=== PATIENT | female | born 2000 | race Caucasian/White ===

== ENCOUNTER 2018-06-29 15:49 | Emergency (ER) | payer BC, MEDICAID ==
--- NOTE | 2018-06-29 16:34 | ERPHSYRPT ---
- History of Present Illness Time Seen by Provider: 06/29/18 16:27 Source: patient, family Exam Limitations: no limitations Patient Subjective Stated Complaint: Pt states "This happened once before and I took a benadryl and it went down but then it happened again today but it is worse." Triage Nursing Assessment: PT alert and oriented X 3, skin pwd. PT ambulates with an upright steady gait. Pt left eye is swollen. Pt in no apparent respiratory distress. Physician History: The patient is a 17-year-old female with her mother complaining of a sudden onset of swelling and itching of her left upper and lower eyelid that began while at [employer] this afternoon. Over the period of about one to one and half hours the swelling increased significantly. The eye itself is not red nor does she have blurry vision. The same thing happened 2 days ago on Saturday but to a lesser extent area on Saturday she took Benadryl and the swelling quickly resolved. She does not recall changing any [id number] treatments such as makeup nor does she recall any changes in her diet. She denies any shortness of breath or swelling in her throat. Her past medical history is unremarkable. Timing/Duration: today, hour(s) (3), sudden Quality: itchy Severity: moderate Location: face (left upper and lower eye lids) Possible Causes: no cause identified Associated Symptoms: edema (left eye lids.), No difficulty breathing, No flushing, No hives, No rash Allergies/Adverse Reactions: No Known Drug Allergies Allergy (Unverified 06/29/18 15:59) Hx Tetanus, Diphtheria Vaccination/Date Given: Yes Hx Influenza Vaccination/Date Given: No Hx Pneumococcal Vaccination/Date Given: No Immunizations Up to Date: Yes - Review of Systems Constitutional: No Fever, No Chills Eyes: No Symptoms Ears, Nose, & Throat: No Symptoms Respiratory: No Cough, No Dyspnea Cardiac: No Chest Pain, No Edema, No Syncope Abdominal/Gastrointestinal: No Abdominal Pain, No Nausea, No Vomiting, No Diarrhea Genitourinary Symptoms: No Dysuria Musculoskeletal: No Symptoms Skin: Pruritis, Other (swelling) Neurological: No Dizziness, No Focal Weakness, No Sensory Changes Psychological: No Symptoms Endocrine: No Symptoms Hematologic/Lymphatic: No Symptoms Immunological/Allergic: No Symptoms All Other Systems: Reviewed and Negative - Past Medical History Pertinent Past Medical History: No - Past Surgical History Past Surgical History: No - Social History Smoking Status: Never smoker Exposure to second hand smoke: No Drug Use: none Patient Lives Alone: No - Female History Hx Last Menstrual Period: 06/29/2018 Hx Now: No - Nursing Vital Signs Nursing Vital Signs: Initial Vital Signs Temperature 97.8 F 06/29/18 15:53 Pulse Rate 94 H 06/29/18 15:53 Respiratory Rate 16 06/29/18 15:53 Blood Pressure 137/84 06/29/18 15:53 O2 Sat by Pulse Oximetry 98 06/29/18 15:53 Pain Scale Pain Intensity 0 - Physical Exam General Appearance: no apparent distress, alert Eye Exam: PERRL/EOMI, other (Examination of the left eye: Both the upper and lower eyelid of the left eye are edematous with slight erythema upon eversion. The conjunctiva is not edematous nor is it erythematous. The pupils are equal round and reactive to light and accommodation. No foreign body is identified. There is no matting or discharge.) Ears, Nose, Throat Exam: normal ENT inspection, pharynx normal, moist mucous membranes Neck Exam: normal inspection, non-tender, supple, full range of motion Respiratory Exam: normal breath sounds, lungs clear, No respiratory distress Cardiovascular Exam: regular rate/rhythm, normal heart sounds Gastrointestinal/Abdomen Exam: soft, mass, No tenderness Pelvic Exam: not done Rectal Exam: not done Back Exam: normal inspection, normal range of motion, No CVA tenderness, No vertebral tenderness Extremity Exam: normal inspection, normal range of motion Neurologic Exam: alert, oriented x 3, cooperative, normal mood/affect, sensation nml, No motor deficits Skin Exam: normal color, warm, dry SpO2 Interpretation: normal SpO2: 99 Oxygen Delivery: Room Air Ordered Tests: Active Orders 24 hr Category Date Time Status IV Insertion STAT Care 06/29/18 16:38 Active CBC W DIFF Stat Lab 06/29/18 17:00 Completed CMP Stat Lab 06/29/18 17:00 Completed ESR [Erythrocyte Sedimentation Rate] Stat Lab 06/29/18 17:00 Completed Medication Summary Discontinued Medications Generic Name Dose Route Start Last Admin Trade Name Freq PRN Reason Stop Dose Admin Diphenhydramine HCl 50 mg 06/29/18 16:38 06/29/18 16:54 Benadryl 50 Mg/Ml IV 06/29/18 16:39 50 mg STAT ONE Administration Diphenhydramine HCl Confirm 06/29/18 16:50 Benadryl 50 Mg/Ml Administered 06/29/18 16:51 Dose 50 mg .ROUTE .STK-MED ONE Famotidine 20 mg 06/29/18 16:38 06/29/18 16:54 Pepcid 20 Mg Vial IV 06/29/18 16:39 20 mg STAT ONE Administration Famotidine Confirm 06/29/18 16:50 Pepcid 20 Mg Vial Administered 06/29/18 16:51 Dose 20 mg IV .STK-MED ONE Loratadine 10 mg 06/29/18 16:38 06/29/18 16:55 Claritin 10 Mg PO 06/29/18 16:39 10 mg STAT ONE Administration Loratadine Confirm 06/29/18 16:50 Claritin 10 Mg Administered 06/29/18 16:51 Dose 10 mg .ROUTE .STK-MED ONE Methylprednisolone Sodium Succinate 125 mg 06/29/18 16:38 06/29/18 16:54 Solu-Medrol 125 Mg IV 06/29/18 16:39 125 mg STAT ONE Administration Methylprednisolone Sodium Succinate Confirm 06/29/18 16:50 Solu-Medrol 125 Mg Administered 06/29/18 16:51 Dose 125 mg .ROUTE .STK-MED ONE Lab/Rad Data: Laboratory Result Diagrams 06/29/18 17:00 06/29/18 17:00 Laboratory Results 06/29/18 06/29/18 06/29/18 Range/Units 17:00 17:00 17:00 WBC 5.2 (4.0-10.5) K/mm3 RBC 3.85 L (4.1-5.4) M/mm3 Hgb 10.2 L (12.0-16.0) gm/dl Hct 32.3 L (35-47) % MCV 83.9 (78-100) fl MCH 26.4 (26-32) pg MCHC 31.6 L (32-36) g/dl RDW 13.0 (11.5-14.0) % Plt Count 238 (150-450) K/mm3 MPV 12.7 H (6-9.5) fl Gran % 68.4 H (36.0-66.0) % Eos # (Auto) 0.09 (0-0.5) Absolute Lymphs (auto) 1.14 (1.0-4.6) Absolute Monos (auto) 0.39 (0.0-1.3) Lymphocytes % 22.1 L (24.0-44.0) % Monocytes % 7.6 (0.0-12.0) % Eosinophils % 1.7 (0.00-5.0) % Basophils % 0.2 (0.0-0.4) % Absolute Granulocytes 3.52 (1.4-6.9) Basophils # 0.01 (0-0.4) ESR 9 (0-20) mm/hr Sodium 142 (137-145) mmol/L Potassium 3.9 (3.5-5.1) mmol/L Chloride 108 H (98-107) mmol/L Carbon Dioxide 26 (22-30) mmol/L Anion Gap 12.3 (5-15) MEQ/L BUN 11 (7-17) mg/dL Creatinine 0.69 (0.52-1.04) mg/dL Estimated GFR > 60.0 ML/MIN Glucose 90 (74-106) mg/dL Calcium 9.4 (8.4-10.2) mg/dL Total Bilirubin 0.20 (0.2-1.3) mg/dL AST 20 (14-36) U/L ALT 17 (0-35) U/L Alkaline Phosphatase 54 (38-126) U/L Serum Total Protein 7.2 (6.3-8.2) g/dL Albumin 4.6 (3.5-5.0) g/dL - Progress Progress: improved Progress Note: 06/29/18 18:14 after meds, swelling is decreasing. Counseled pt/family regarding: lab results, diagnosis - Departure Time of Disposition: 18:15 Departure Disposition: Home Clinical Impression: Angioedema Condition: Stable Critical Care Time: No Referrals: SEAN MELCHOR [Primary Care Provider] - Additional Instructions: You have an allergic reaction of angioedema. You were given Pepcid 20 mg, Benadryl 50 mg, and Solu-Medrol 125 mg by IV in the ER. You were also given loratadine 10 mg orally. The the allergen causing the angioedema is unknown at this time. Take prednisone 60 mg daily for 5 days. If the condition returns, these do not hesitate to return to the ER or follow-up with your primary medical doctor. You may also take Benadryl 25-50 mg every 2-4 hours as needed. Prescriptions: Prednisone 20 mg [Deltasone 20 mg] 3 tab PO DAILY #15 tablet
[2018-06-29] MEDS ORDERED: CLARITIN 10 MG ONE (16:50)
[2018-06-29] MEDS ORDERED: BENADRYL 50 MG/ML ONE (16:50)
[2018-06-29] MEDS ORDERED: Pepcid 20 MG VIAL IV ONE (16:50)
[2018-06-29] MEDS ORDERED: solu-MEDROL 125 MG ONE (16:50)
[2018-06-29] MEDS: BENADRYL 50 MG/ML IV ONE (16:54)
[2018-06-29] MEDS: solu-MEDROL 125 MG IV ONE (16:54)
[2018-06-29] MEDS: Pepcid 20 MG VIAL IV ONE (16:54)
[2018-06-29] MEDS: CLARITIN 10 MG PO ONE (16:55)
[2018-06-29 17:24] LABS: ALBUMIN 4.6 g/dL (3.5-5.0); ALKALINE PHOSPHATASE 54 U/L (38-126); ANION GAP 12.3 MEQ/L (5-15); BLOOD UREA NITROGEN 11 mg/dL (7-17); CHLORIDE 108 mmol/L (98-107); Calcium 9.4 mg/dL (8.4-10.2); Carbon Dioxide 26 mmol/L (22-30); Creatinine 1 0.69 mg/dL (0.52-1.04); Glucose 90 mg/dL (74-106); Potassium 3.9 mmol/L (3.5-5.1); SGOT/AST 20 U/L (14-36); SGPT/ALT 17 U/L (0-35); SODIUM 142 mmol/L (137-145); Total Protein 7.2 g/dL (6.3-8.2)
[2018-06-29 17:30] LABS: BASOPHIL % 0.2 % (0.0-0.4); Basophil (Absolute #) 0.01 (0-0.4); Eosinophil % 1.7 % (0.00-5.0); Eosinophil (Absolute #) 0.09 (0-0.5); Granulocyte Absolute (ANC) 3.52 (1.4-6.9); Granulocytes % 68.4 % (36.0-66.0); Hematocrit 32.3 % (35-47); Hemoglobin 10.2 gm/dl (12.0-16.0); Lymphocyte (Absolute #) 1.14 (1.0-4.6); Lymphocytes % 22.1 % (24.0-44.0); Mean Cell Volume 83.9 fl (78-100); Mean Corpuscular Hgb Concent. 31.6 g/dl (32-36); Mean Platelet Volume 12.7 fl (6-9.5); Monocyte (Absolute #) 0.39 (0.0-1.3); Monocytes % 7.6 % (0.0-12.0); Platelet Count 238 K/mm3 (150-450); Red Blood Count 3.85 M/mm3 (4.1-5.4); White Blood Count 5.2 K/mm3 (4.0-10.5)
[2018-06-29 17:34] LABS: Mean Corpuscular Hemoglobin 26.4 pg (26-32)
[2018-06-29 18:20] VITALS: BP 118/63; PULSE 70; O2SAT 98
== END 2018-06-29 18:30 | disposition home or self-care (01) ==
LOC: ED 15:49
DX: T78.3XXA Angioneurotic edema, initial encounter (principal)
CPT/HCPCS: 36000; 36415; 80053; 85025; 85652; 96374; 96375; 99284; J1200; J2930; A9270-GY

== ENCOUNTER 2018-09-11 14:17 | Emergency (ER) | payer BC ==
[2018-09-11 14:43] VITALS: BP 115/78; PULSE 88; O2SAT 99
[2018-09-11 15:00] LABS: BASOPHIL % 0.3 % (0.0-0.4); Basophil (Absolute #) 0.02 (0-0.4); Eosinophil % 0.6 % (0.00-5.0); Eosinophil (Absolute #) 0.04 (0-0.5); Granulocyte Absolute (ANC) 4.64 (1.4-6.9); Granulocytes % 73.3 % (36.0-66.0); Hematocrit 38.7 % (35-47); Hemoglobin 12.4 gm/dl (12.0-16.0); Lymphocyte (Absolute #) 1.24 (1.0-4.6); Lymphocytes % 19.6 % (24.0-44.0); Mean Cell Volume 86.6 fl (78-100); Mean Corpuscular Hemoglobin 27.7 pg (26-32); Mean Platelet Volume 11.8 fl (6-9.5); Monocyte (Absolute #) 0.39 (0.0-1.3); Monocytes % 6.2 % (0.0-12.0); Platelet Count 256 K/mm3 (150-450); Red Blood Count 4.47 M/mm3 (4.1-5.4); Red Cell Distribution Width 17.2 % (11.5-14.0); White Blood Count 6.3 K/mm3 (4.0-10.5)
[2018-09-11 15:10] LABS: ANION GAP 13.5 MEQ/L (5-15); BLOOD UREA NITROGEN 10 mg/dL (7-17); CHLORIDE 101 mmol/L (98-107); Calcium 9.6 mg/dL (8.4-10.2); Carbon Dioxide 28 mmol/L (22-30); Creatinine 1 0.86 mg/dL (0.52-1.04); Glucose 110 mg/dL (74-106); Potassium 4.3 mmol/L (3.5-5.1); SODIUM 138 mmol/L (137-145)
[2018-09-11 15:42] LABS: Appearance CLEAR (CLEAR); Bilirubin NEGATIVE (NEGATIVE); Blood NEGATIVE Ery/ul (0-5); Glucose NEGATIVE (NEGATIVE); Ketones NEGATIVE (NEGATIVE); Leukocyte Esterase NEGATIVE (NEGATIVE); Nitrite NEGATIVE (NEGATIVE); Protein,Urine Dip NEGATIVE (Negative); Specific Gravity 1.001 (1.005-1.025); Urobilinogen NEGATIVE mg/dL (0-1)
[2018-09-11 15:44] LABS: Bacteria NONE SEEN /HPF (NEGATIVE)
[2018-09-11] MEDS ORDERED: BENADRYL 25 MG CAPSULE PO ONE (15:59)
--- NOTE | 2018-09-11 16:08 | ERPHSYRPT ---
- History of Present Illness Source: patient Exam Limitations: no limitations Patient Subjective Stated Complaint: was driving down the road approx one hour ago and suddenly started having sharp chest pains, numbness in face and hands and pressure in right eye. pulled car over into the gas station and drank some orange juice. recently dx with anemia and started on iron pills. is now just having short little twinges in chest and minimal numbness to cheeks. Triage Nursing Assessment: ambulated to room per self. skin w/d, color normal, resp easy. juarez. a/o times three. Physician History: Pt is a 18 y/o with no medical history that was driving today in her car, and felt numbness in her face, pressure behind one eye, chest discomfort, and palpitations. Pt stopped near a store, got a bottle of juice, and drank it. She felt better after some time past by. Pt came to the ER, with most symptoms resolved, but she still has face numbness, and her L eye has some swelling. Pt denies N/V/D or abdominal pain. No SOB or cough. No F/C/S. Timing/Duration: today Severity: moderate Character of Deficits: altered sensation, Left Facial, vision problems Deficits: no difficulties Baseline/Normal Cognition: alert oriented x 3 Current Cognition: alert oriented x 3 Associated Symptoms: paresthesia, vision changes, chest pain Allergies/Adverse Reactions: sulfamethoxazole [From Bactrim] Allergy (Verified 09/11/18 14:43) trimethoprim [From Bactrim] Allergy (Verified 09/11/18 14:43) Home Medications: Ferrous Sulfate 325 mg PO DAILY 09/11/18 [History] Fexofenadine HCl [Brenda] 30 mg PO DAILY 09/11/18 [History] Norgestimate-Ethinyl Estradiol [Tri-Sprintec] 1 ea PO DAILY 09/11/18 [History] Hx Tetanus, Diphtheria Vaccination/Date Given: Yes Hx Influenza Vaccination/Date Given: Yes Hx Pneumococcal Vaccination/Date Given: No Immunizations Up to Date: No - Review of Systems Constitutional: No Fever, No Chills Eyes: Vision Changes, Other (around the L eye sweling) Ears, Nose, & Throat: No Symptoms Respiratory: Dyspnea, No Cough Cardiac: Chest Pain, No Edema, No Syncope Abdominal/Gastrointestinal: No Abdominal Pain, No Nausea, No Vomiting, No Diarrhea Genitourinary Symptoms: No Dysuria Neurological: Dizziness, Parasthesia, Sensory Changes Psychological: No Symptoms - Past Medical History Pertinent Past Medical History: Yes Other Medical History: anemia - Past Surgical History Past Surgical History: No - Social History Smoking Status: Never smoker Exposure to second hand smoke: No Drug Use: none Patient Lives Alone: No - Female History Hx Now: No - Nursing Vital Signs Nursing Vital Signs: Initial Vital Signs Temperature 98 F 09/11/18 14:28 Pulse Rate 88 09/11/18 14:28 Respiratory Rate 16 09/11/18 14:28 Blood Pressure 115/78 09/11/18 14:28 O2 Sat by Pulse Oximetry 99 09/11/18 14:28 Pain Scale Pain Intensity 1 - Amparo Coma Scale Best Eye Response ([place]): (4) open spontaneously Best Verbal Response (Amparo): (5) oriented Best Motor Response ([place]paro): (6) obeys commands [place] Total: 15 - Physical Exam General Appearance: no apparent distress, alert Eye Exam: left eye: vision changes (tearing, swelling below the eye) Ears, Nose, Throat Exam: normal ENT inspection, moist mucous membranes Respiratory: normal breath sounds, lungs clear, airway intact, No respiratory distress Cardiovascular: regular rate/rhythm, No edema Gastrointestinal: soft, No tenderness, No distention Back Exam: normal inspection Extremity Exam: normal inspection, No pedal edema Mental Status: 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, 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 Exam: normal speech, tongue midline Motor/Sensory: no motor deficit SpO2: 99 - Course Nursing assessment & vital signs reviewed: Yes Ordered Tests: Active Orders 24 hr Category Date Time Status Clean Catch Urine Specimen STAT Care 09/11/18 15:34 Active BMP Stat Lab 09/11/18 14:55 Completed CBC W DIFF Stat Lab 09/11/18 14:55 Completed UA W/RFX UR CULTURE Stat Lab 09/11/18 15:35 Completed Medication Summary Discontinued Medications Generic Name Dose Route Start Last Admin Trade Name Freq PRN Reason Stop Dose Admin Diphenhydramine HCl 50 mg 09/11/18 15:59 Benadryl 25 Mg Capsule PO 09/11/18 16:00 STAT ONE Lab/Rad Data: Laboratory Result Diagrams 09/11/18 14:55 09/11/18 14:55 Laboratory Results 09/11/18 09/11/18 09/11/18 Range/Units 15:35 14:55 14:55 WBC 6.3 (4.0-10.5) K/mm3 RBC 4.47 (4.1-5.4) M/mm3 Hgb 12.4 (12.0-16.0) gm/dl Hct 38.7 (35-47) % MCV 86.6 (78-100) fl MCH 27.7 (26-32) pg MCHC 32.0 (32-36) g/dl RDW 17.2 H (11.5-14.0) % Plt Count 256 (150-450) K/mm3 MPV 11.8 H (6-9.5) fl Gran % 73.3 H (36.0-66.0) % Eos # (Auto) 0.04 (0-0.5) Absolute Lymphs (auto) 1.24 (1.0-4.6) Absolute Monos (auto) 0.39 (0.0-1.3) Lymphocytes % 19.6 L (24.0-44.0) % Monocytes % 6.2 (0.0-12.0) % Eosinophils % 0.6 (0.00-5.0) % Basophils % 0.3 (0.0-0.4) % Absolute Granulocytes 4.64 (1.4-6.9) Basophils # 0.02 (0-0.4) Sodium 138 (137-145) mmol/L Potassium 4.3 (3.5-5.1) mmol/L Chloride 101 (98-107) mmol/L Carbon Dioxide 28 (22-30) mmol/L Anion Gap 13.5 (5-15) MEQ/L BUN 10 (7-17) mg/dL Creatinine 0.86 (0.52-1.04) mg/dL Estimated GFR > 60.0 ML/MIN Glucose 110 H (74-106) mg/dL Calcium 9.6 (8.4-10.2) mg/dL Urine Color COLORLESS (YELLOW) Urine Appearance CLEAR (CLEAR) Urine pH 7.0 (5-6) Ur Specific [place] 1.001 (1.005-1.025) Urine Protein NEGATIVE (Negative) Urine Ketones NEGATIVE (NEGATIVE) Urine Blood NEGATIVE (0-5) Umesh/ul Urine Nitrite NEGATIVE (NEGATIVE) Urine Bilirubin NEGATIVE (NEGATIVE) Urine Urobilinogen NEGATIVE (0-1) mg/dL Ur Leukocyte Esterase NEGATIVE (NEGATIVE) Urine WBC (Auto) NONE (0-5) /HPF Urine RBC (Auto) NONE (0-2) /HPF U Epithel Cells (Auto) NONE (FEW) /HPF Urine Bacteria (Auto) NONE SEEN (NEGATIVE) /HPF Urine Culture Reflexed NO (NO) Urine Glucose NEGATIVE (NEGATIVE) mg/dL - Progress Progress: improved Progress Note: 09/11/18 16:10 Pt's labs were checked. There is no anemia, hypoglycemia or any other abnormality. Pt had some undereye swelling and Benadryl 50mg PO was given. Pt was diagnosed with complex migraines with aura. Pt was advised to f/u with Neurology. If anytime this repeats itself, to call 911, as I am not sure if pt was hypoglycemic, but at this point her BG is normal, post a bottle of orange juice. Pt should f/u with her PCP. Will see patient in: office Counseled pt/family regarding: need for follow-up - Departure Time of Disposition: 16:12 Departure Disposition: Home Clinical Impression: Migraine aura without headache Condition: Stable Critical Care Time: No Referrals: MASSIEL DOSS MD [Primary Care Provider] - Additional Instructions: F/U with PCP and neurology. Call 911, if those episodes will repeat themselves.
[2018-09-11] MEDS ORDERED: BENADRYL 25 MG CAPSULE ONE (16:35)
== END 2018-09-11 16:40 | disposition home or self-care (01) ==
LOC: ED 14:17
DX: G43.109 Migraine with aura, not intractable, without status migrainosus (principal)
CPT/HCPCS: 36415; 80048; 81001; 85025; 99283; A9270-GY

== ENCOUNTER 2021-06-21 11:58 | Emergency (ER) | payer BC, OTHER ==
[2021-06-21] MEDS ORDERED: Sodium Chloride 0.9% 1000 ML 1,000 ML IV STA (12:19)
[2021-06-21] MEDS ORDERED: Sodium Chloride 0.9% 1000 ML 1,000 ML ONE (12:23)
[2021-06-21 12:57] LABS: Absolute Neutrophil Ct (ANC) 5.87 (1.4-6.9); BASOPHIL % 0.3 % (0.0-0.4); Basophil (Absolute #) 0.02 (0-0.4); Eosinophil % 1.5 % (0.00-5.0); Eosinophil (Absolute #) 0.11 (0-0.5); Hematocrit 36.2 % (35-47); Hemoglobin 11.7 gm/dl (12.0-16.0); Lymphocyte (Absolute #) 1.06 (1.0-4.6); Lymphocytes % 14.2 % (24.0-44.0); Mean Cell Volume 91.6 fl (78-100); Mean Corpuscular Hemoglobin 29.6 pg (26-32); Mean Corpuscular Hgb Concent. 32.3 g/dl (32-36); Mean Platelet Volume 11.6 fl (7.5-11.0); Monocyte (Absolute #) 0.39 (0.0-1.3); Monocytes % 5.2 % (0.0-12.0); Neutrophil % 78.8 % (36.0-66.0); Platelet Count 196 K/mm3 (150-450); Red Blood Count 3.95 M/mm3 (4.1-5.4); Red Cell Distribution Width 12.5 % (11.5-14.0); White Blood Count 7.5 K/mm3 (4.0-10.5)
[2021-06-21 12:58] LABS: Appearance SLIGHTLY CLOUDY (CLEAR); Bacteria RARE /HPF (NEGATIVE); Bilirubin NEGATIVE (NEGATIVE); Blood NEGATIVE Ery/ul (0-5); Epithelial Cells RARE /HPF (FEW); Glucose NEGATIVE (NEGATIVE); Ketones NEGATIVE (NEGATIVE); Leukocyte Esterase NEGATIVE (NEGATIVE); Mucus MODERATE /HPF (NEGATIVE); Nitrite NEGATIVE (NEGATIVE); Protein,Urine Dip NEGATIVE (Negative); Urobilinogen NEGATIVE mg/dL (0-1); WBC 0-2 /HPF (0-5)
[2021-06-21 13:03] VITALS: O2SAT 100
[2021-06-21 13:06] LABS: Amphetamine,Urine NEGATIVE (NEGATIVE); Barbiturate,Urine NEGATIVE (NEGATIVE); Benzodiazepine,Urine NEGATIVE (NEGATIVE); Cocaine,Urine NEGATIVE (NEGATIVE); Methadone,Urine NEGATIVE (NEGATIVE); PCP,Urine NEGATIVE (NEGATIVE); THC,Urine NEGATIVE (NEGATIVE)
[2021-06-21 13:10] LABS: ALBUMIN 3.7 g/dL (3.5-5.0); ALKALINE PHOSPHATASE 52 U/L (38-126); ANION GAP 11.5 MEQ/L (5-15); BLOOD UREA NITROGEN 13 mg/dL (7-17); CHLORIDE 108 mmol/L (98-107); Calcium 8.5 mg/dL (8.4-10.2); Carbon Dioxide 22 mmol/L (22-30); Creatinine 1 0.63 mg/dL (0.52-1.04); EST GLOMERULAR FILTRATION RATE > 60.0 ML/MIN; Glucose 84 mg/dL (74-106); MAGNESIUM 1.6 mg/dL (1.6-2.3); Potassium 4.4 mmol/L (3.5-5.1); SGOT/AST 19 U/L (14-36); SGPT/ALT 12 U/L (0-35); SODIUM 138 mmol/L (137-145)
[2021-06-21 13:11] LABS: Opiate,Urine NEGATIVE (NEGATIVE)
--- NOTE | 2021-06-21 13:33 | XRAY ---
Indication: Syncope. Headache. Multiple contiguous axial images obtained through the head without contrast. Comparison: None Normal appearing brain parenchyma, ventricles, and bony calvarium. Visualized paranasal sinuses and mastoid air cells are clear. Impression: Normal CT head without contrast exam.
--- NOTE | 2021-06-21 13:35 | XRAY ---
Indication: Syncope. Comparison: None Portable chest demonstrates normal heart, lungs, and bony thorax.
--- NOTE | 2021-06-21 14:10 | ERPHSYRPT ---
- History of Present Illness Time Seen by Provider: 06/21/21 11:59 Source: patient Exam Limitations: no limitations Patient Subjective Stated Complaint: pt here for a near syncoapl episode today, she has not eaten today, denies any cos, Triage Nursing Assessment: pt alert, reap easy, pt shaky at times.denies any stress or illness, face mask in place, abd soft, no edema noted Physician History: 20 years old female with history of anxiety presented in the ER with a chief complaint of near syncopal episode prior to arrival while she was standing at a coffee shop and all of a sudden started to feel dizzy lightheaded and feeling as if she was going to pass out. She collapsed on the floor, was weak fatigued and tired, questionable loss of consciousness for few seconds without any seizure- like activity noticed. Patient denies any difficulty speech, numbness tingling or weakness. She was hyperventilating afterwards. Denies any chest pain palpitations or shortness of breath. No abdominal pain nausea vomiting or sick contact reported. Reports having similar symptoms multiple times in the past and has been evaluated by neurology, cardiology with no obvious cause found. Timing/Duration: hour(s) (0.5), resolved prior to arrival, improved Severity: moderate Character of Deficits: none Deficits: no difficulties Baseline/Normal Cognition: alert oriented x 3 Current Cognition: alert oriented x 3 Baseline Gait: walks w/o assistance Associated Symptoms: fatigue, headache Allergies/Adverse Reactions: sulfamethoxazole [From Bactrim] Allergy (Verified 09/11/18 14:43) trimethoprim [From Bactrim] Allergy (Verified 09/11/18 14:43) Home Medications: Fexofenadine HCl [Brenda] 30 mg PO DAILY 09/11/18 [History] Hx Tetanus, Diphtheria Vaccination/Date Given: No Hx Influenza Vaccination/Date Given: No Hx Pneumococcal Vaccination/Date Given: No Immunizations Up to Date: Yes Travel Risk - International Travel Have you traveled outside of the country in past 3 weeks: No - Coronavirus Screening Are you exhibiting any of the following symptoms?: No Close contact with a COVID-19 positive Pt in past 14-21 Days: No - Vaccine Status Have you recieved a Covid-19 vaccination: No - Review of Systems Constitutional: Fatigue, Weakness Eyes: No Symptoms Ears, Nose, & Throat: No Symptoms Respiratory: No Symptoms Cardiac: No Symptoms Abdominal/Gastrointestinal: No Symptoms Genitourinary Symptoms: No Symptoms Musculoskeletal: No Symptoms Skin: No Symptoms Neurological: Headache Psychological: Anxiety Endocrine: No Symptoms Hematologic/Lymphatic: No Symptoms Immunological/Allergic: No Symptoms - Past Medical History Pertinent Past Medical History: Yes Other Medical History: anemia - Past Surgical History Past Surgical History: No - Social History Smoking Status: Never smoker Exposure to second hand smoke: No Drug Use: none Patient Lives Alone: No - Female History Hx Last Menstrual Period: 4 weeks ago Hx Now: (unkn) - Nursing Vital Signs Nursing Vital Signs: Initial Vital Signs Temperature 97.5 F 06/21/21 11:59 Pulse Rate 84 06/21/21 11:59 Respiratory Rate 16 06/21/21 11:59 Blood Pressure 118/75 06/21/21 11:59 O2 Sat by Pulse Oximetry 99 06/21/21 11:59 Pain Scale Pain Intensity 0 - [place] Coma Scale Best Eye Response ([place]): (4) open spontaneously Best Verbal Response ([place]): (5) oriented Best Motor Response ([place]): (6) obeys commands [place] Total: 15 - Physical Exam General Appearance: no apparent distress, alert, anxiety Eye Exam: bilateral eye: normal inspection, PERRL, EOMI Ears, Nose, Throat Exam: normal ENT inspection, TMs normal, pharynx normal, moist mucous membranes Neck Exam: normal inspection, non-tender, supple, full range of motion, No meningismus Respiratory: normal breath sounds, lungs clear Cardiovascular: regular rate/rhythm, normal heart sounds Gastrointestinal: soft, normal bowel sounds, No tenderness Back Exam: normal inspection, normal range of motion, No CVA tenderness Extremity Exam: normal inspection, normal range of motion, pelvis stable Mental Status: alert, oriented x 3, 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 Exam: normal hearing, normal speech, PERRL, No facial asymmetry Coordination/Gait: normal finger to nose, normal gait, normal cerebellar function, negative Romberg's sign Motor/Sensory: no motor deficit, no sensory deficit, no pronator drift, negative Babinski's sign DTR: bicep (R): 2+, bicep (L): 2+, knee (R): 2+, knee (L): 2+ Skin Exam: normal color SpO2 Interpretation: normal SpO2: 100 O2 Delivery: Room Air - Course EKG Interpreted by Me: RATE (70), Sinus Rhythm, NORMAL AXIS, NORMAL INTERVALS, NORMAL QRS Ordered Tests: Active Orders 24 hr Category Date Time Status EKG-ER Only STAT Care 06/21/21 12:19 Completed IV Insertion STAT Care 06/21/21 12:19 Completed CHEST 1 VIEW (PORTABLE) Stat Exams 06/21/21 12:19 Completed HEAD WITHOUT CONTRAST [CT] Stat Exams 06/21/21 12:20 Completed CBC W DIFF Stat Lab 06/21/21 12:50 Completed CMP Stat Lab 06/21/21 12:50 Completed HCG,QUALITATIVE URINE Stat Lab 06/21/21 12:22 Completed Lactic Acid Stat Lab 06/21/21 12:19 Completed MAGNESIUM Stat Lab 06/21/21 12:50 Completed TROPONIN Q3H Lab 06/21/21 12:50 Received TROPONIN Q3H Lab 06/21/21 15:30 Ordered TROPONIN Q3H Lab 06/21/21 18:30 Ordered TROPONIN Q3H Lab 06/21/21 21:30 Ordered UA W/RFX UR CULTURE Stat Lab 06/21/21 12:22 Completed Urine Triage Profile Stat Lab 06/21/21 12:22 Completed Medication Summary Discontinued Medications Generic Name Dose Route Start Last Admin Trade Name Freq PRN Reason Stop Dose Admin Sodium Chloride 1,000 mls @ 999 mls/hr 06/21/21 12:19 06/21/21 13:52 Sodium Chloride 0.9% 1000 Ml IV 06/21/21 13:19 Infused .Q1H1M STA Infusion Sodium Chloride Confirm 06/21/21 12:23 Sodium Chloride 0.9% 1000 Ml Administered 06/21/21 12:24 Dose 1,000 mls @ ud .ROUTE .K-MED ONE Lab/Rad Data: Laboratory Result Diagrams 06/21/21 12:50 06/21/21 12:50 Laboratory Results 06/21/21 06/21/21 06/21/21 Range/Units 12:50 12:50 12:22 WBC 7.5 (4.0-10.5) K/mm3 RBC 3.95 L (4.1-5.4) M/mm3 Hgb 11.7 L (12.0-16.0) gm/dl Hct 36.2 (35-47) % MCV 91.6 (78-100) fl MCH 29.6 (26-32) pg MCHC 32.3 (32-36) g/dl RDW 12.5 (11.5-14.0) % Plt Count 196 (150-450) K/mm3 MPV 11.6 H (7.5-11.0) fl Gran % 78.8 H (36.0-66.0) % Eos # (Auto) 0.11 (0-0.5) Absolute Lymphs (auto) 1.06 (1.0-4.6) Absolute Monos (auto) 0.39 (0.0-1.3) Lymphocytes % 14.2 L (24.0-44.0) % Monocytes % 5.2 (0.0-12.0) % Eosinophils % 1.5 (0.00-5.0) % Basophils % 0.3 (0.0-0.4) % Absolute Granulocytes 5.87 (1.4-6.9) Basophils # 0.02 (0-0.4) Sodium 138 (137-145) mmol/L Potassium 4.4 (3.5-5.1) mmol/L Chloride 108 H (98-107) mmol/L Carbon Dioxide 22 (22-30) mmol/L Anion Gap 11.5 (5-15) MEQ/L BUN 13 (7-17) mg/dL Creatinine 0.63 (0.52-1.04) mg/dL Estimated GFR > 60.0 ML/MIN Glucose 84 (74-106) mg/dL Lactic Acid (0.4-2.0) Calcium 8.5 (8.4-10.2) mg/dL Magnesium 1.6 (1.6-2.3) mg/dL Total Bilirubin 0.40 (0.2-1.3) mg/dL AST 19 (14-36) U/L ALT 12 (0-35) U/L Alkaline Phosphatase 52 (38-126) U/L Serum Total Protein 6.0 L (6.3-8.2) g/dL Albumin 3.7 (3.5-5.0) g/dL Urine Color (YELLOW) Urine Appearance (CLEAR) Urine pH (5-6) Ur Specific [place] (1.005-1.025) Urine Protein (Negative) Urine Ketones (NEGATIVE) Urine Blood (0-5) Umesh/ul Urine Nitrite (NEGATIVE) Urine Bilirubin (NEGATIVE) Urine Urobilinogen (0-1) mg/dL Ur Leukocyte Esterase (NEGATIVE) Urine WBC (Auto) (0-5) /HPF Urine RBC (Auto) (0-2) /HPF U Epithel Cells (Auto) (FEW) /HPF Urine Bacteria (Auto) (NEGATIVE) /HPF Urine Mucus (Auto) (NEGATIVE) /HPF Urine Culture Reflexed (NO) Urine Glucose (NEGATIVE) mg/dL Urine HCG, Qual (Negative) Urine Opiates Level NEGATIVE (NEGATIVE) Ur Methadone NEGATIVE (NEGATIVE) Urine Barbiturates NEGATIVE (NEGATIVE) Ur Phencyclidine (PCP) NEGATIVE (NEGATIVE) Urine Amphetamine NEGATIVE (NEGATIVE) U Benzodiazepine Level NEGATIVE (NEGATIVE) Urine Cocaine NEGATIVE (NEGATIVE) Urine Marijuana (THC) NEGATIVE (NEGATIVE) 06/21/21 06/21/21 06/21/21 Range/Units 12:22 12:22 12:19 WBC (4.0-10.5) K/mm3 RBC (4.1-5.4) M/mm3 Hgb (12.0-16.0) gm/dl Hct (35-47) % MCV (78-100) fl MCH (26-32) pg MCHC (32-36) g/dl RDW (11.5-14.0) % Plt Count (150-450) K/mm3 MPV (7.5-11.0) fl Gran % (36.0-66.0) % Eos # (Auto) (0-0.5) Absolute Lymphs (auto) (1.0-4.6) Absolute Monos (auto) (0.0-1.3) Lymphocytes % (24.0-44.0) % Monocytes % (0.0-12.0) % Eosinophils % (0.00-5.0) % Basophils % (0.0-0.4) % Absolute Granulocytes (1.4-6.9) Basophils # (0-0.4) Sodium (137-145) mmol/L Potassium (3.5-5.1) mmol/L Chloride (98-107) mmol/L Carbon Dioxide (22-30) mmol/L Anion Gap (5-15) MEQ/L BUN (7-17) mg/dL Creatinine (0.52-1.04) mg/dL Estimated GFR ML/MIN Glucose (74-106) mg/dL Lactic Acid 1.3 (0.4-2.0) Calcium (8.4-10.2) mg/dL Magnesium (1.6-2.3) mg/dL Total Bilirubin (0.2-1.3) mg/dL AST (14-36) U/L ALT (0-35) U/L Alkaline Phosphatase (38-126) U/L Serum Total Protein (6.3-8.2) g/dL Albumin (3.5-5.0) g/dL Urine Color YELLOW (YELLOW) Urine Appearance SLIGHTLY CLOUDY (CLEAR) Urine pH 6.0 (5-6) Ur Specific [place] 1.020 (1.005-1.025) Urine Protein NEGATIVE (Negative) Urine Ketones NEGATIVE (NEGATIVE) Urine Blood NEGATIVE (0-5) Umesh/ul Urine Nitrite NEGATIVE (NEGATIVE) Urine Bilirubin NEGATIVE (NEGATIVE) Urine Urobilinogen NEGATIVE (0-1) mg/dL Ur Leukocyte Esterase NEGATIVE (NEGATIVE) Urine WBC (Auto) 0-2 (0-5) /HPF Urine RBC (Auto) 6-10 (0-2) /HPF U Epithel Cells (Auto) RARE (FEW) /HPF Urine Bacteria (Auto) RARE (NEGATIVE) /HPF Urine Mucus (Auto) MODERATE (NEGATIVE) /HPF Urine Culture Reflexed NO (NO) Urine Glucose NEGATIVE (NEGATIVE) mg/dL Urine HCG, Qual NEGATIVE (Negative) Urine Opiates Level (NEGATIVE) Ur Methadone (NEGATIVE) Urine Barbiturates (NEGATIVE) Ur Phencyclidine (PCP) (NEGATIVE) Urine Amphetamine (NEGATIVE) U Benzodiazepine Level (NEGATIVE) Urine Cocaine (NEGATIVE) Urine Marijuana (THC) (NEGATIVE) - Progress Progress: improved Progress Note: 06/21/21 14:09 Patient has nonfocal neuro exam throughout stay in the ER. She is ambulating in the ER without any difficulty. EKG showed normal sinus rhythm. She had some headache and questionable hitting her head, obtained CT head which is negative. Grossly unremarkable work-up. Patient was very anxious and because of hyperventilating was having some carpopedal spasms. She is counseled and feels better on reevaluation. She does have some element of anxiety and also reports she did not eat since morning. Work-up is grossly unremarkable. Patient having similar symptoms in the past, recommended outpatient follow-up with primary care and may need to reconnect with her trout farmer/neurologist which she has daniel johnson seeing in the past in [place]. Discussed signs symptoms of worsening needing return to ER which she seems understanding. Counseled pt/family regarding: lab results, diagnosis, need for follow-up, rad results - Departure Departure Disposition: Home Clinical Impression: Syncope and collapse Condition: Stable Critical Care Time: No Referrals: MASSIEL DOSS MD [Primary Care Provider] - Follow up/PCP as directed (Call in 2 days for reevaluation.) Instructions: Syncope (Fainting) (DC) Additional Instructions: Keep yourself well-hydrated. Drink plenty of fluids. Follow-up with your primary care physician and may need to call your trout farmer/neurologist for reevaluation. Return to ER for worsening headache or if having numbness tingling weakness, chest pain palpitations/shortness of breath or having any dizziness lightheadedness or near syncopal episode.
[2021-06-21 14:11] VITALS: BP 108/63; PULSE 76
== END 2021-06-21 14:16 | disposition home or self-care (01) ==
LOC: ED 11:58
DX: R55 Syncope and collapse (principal); R53.83 Other fatigue; R51.9 Headache, unspecified; F41.1 Generalized anxiety disorder; R06.4 Hyperventilation
CPT/HCPCS: 36000; 36415; 70450; 71045; 80053; 80307; 81001; 83605; 83735; 84484; 84703; 85025; 93005; 96360; 99284

== ENCOUNTER 2022-08-23 06:24 | Day surgery (SDC) | payer OTHER ==
[2022-08-23] MEDS ORDERED: Lactated Ringers 1,000 ML IV SCH (06:30)
[2022-08-23] MEDS ORDERED: Lactated Ringers 1,000 ML IV ONE (06:50)
[2022-08-23] MEDS ORDERED: Xylocaine-Mpf 2% 5 Ml Vial ONE (07:27)
[2022-08-23] MEDS ORDERED: DIPRIVAN 200 MG/20 ML IV ONE ×2 (07:27→08:09)
[2022-08-23] MEDS ORDERED: PHENYLEPHRINE HCL ONE (08:27)
[2022-08-23 08:54] VITALS: O2SAT 100
[2022-08-23 09:15] VITALS: BP 110/66; PULSE 79
--- NOTE | 2022-08-23 09:53 | OP ---
SURGERY DATE/TIME: 08/23/2022 0759 PREOPERATIVE DIAGNOSES: 1) Abdominal pain. 2) Chronic constipation. POSTOPERATIVE DIAGNOSES: 1) Mild gastritis. 2) Normal colon. PROCEDURES: 1) EGD. 2) Colonoscopy. SURGEON: Cristi Ward M.D. ANESTHESIA: MAC by Kana Babcock CRNA. ESTIMATED BLOOD LOSS: Minimal. SPECIMENS: 1) Two cold forceps biopsies from the gastric antrum sent for Helicobacter pylori testing. 2) Two random cold forceps biopsies from the sigmoid colon. DESCRIPTION OF PROCEDURE: After informed written consent was obtained, the patient was taken to the endoscopy suite. She was placed in left lateral decubitus position and a bite block inserted. Anesthesia was then titrated to desired level of consciousness and under direct visualization the esophagus was traversed with the scope. The esophageal mucosa had a normal appearance. The gastroesophageal junction likewise was normal. Upon entering the stomach there is normal rugated gastric mucosa free of lesions or defects. There were mild gastritis-type changes. No active ulceration or bleeding in the gastric antrum. Two cold forceps biopsies were taken for Helicobacter pylori testing. There was minimal blood loss. The duodenum had a normal mucosal appearance free of any lesions or defects. Upon withdrawal all mucosal structures were noted to be within normal limits. The scope was removed and the scopes were switched. Digital rectal exam showed normal sphincter tone and no internal lesions. The scope was inserted in the rectum and sequentially the entire colonic mucosa was traversed. The level of the cecum was reached and verified with direct visualization of the ileocecal valve. Upon withdrawal careful mucosal inspection revealed no gross abnormalities. Prep was noted to be good. In the distal sigmoid colon two random biopsies with cold forceps were taken and sent to pathology. Retroflexion was performed prior to withdrawal and showed no internal lesions. The scope was removed and the patient was transferred to the recovery room in good condition.
== END 2022-08-23 09:10 | disposition home or self-care (01) ==
LOC: SDC 06:24
PROVIDERS: ATTEND Family Medicine
DX: K29.70 Gastritis, unspecified, without bleeding (principal); R10.9 Unspecified abdominal pain; K59.09 Other constipation
CPT/HCPCS: 36415; 84703; J2370; J2704